=== PATIENT | female | born 1965 | race Caucasian/White ===

== ENCOUNTER 2023-07-29 06:36 | Day surgery (SDC) | payer BC, SELFPAY ==
[2023-07-15 09:29] VITALS: BMI 27.3
[2023-07-15 09:48] LABS: % Basophils 0.9 % (0-2); % Eosinophils 3.1 % (0-6); % Immature Granulocytes 0.3 % (0-0.5); % Lymphocytes 21.5 % (20.5-51.1); % Monocytes 7.7 % (1.7-9.3); % Neutrophils 66.5 % (42.2-75.2); Absolute Eosinophils 0.1 10^3/uL (0-0.7); Absolute Lymphocytes 0.7 10^3/uL (1.2-3.4); Absolute Monocytes 0.3 10^3/uL (0.1-0.6); Absolute Neutrophils 2.2 10^3/uL (1.4-6.5); Hematocrit 32.4 % (37.0-47.0); Hemoglobin 10.6 g/dL (12.0-16.0); Mean Corp Hgb Conc. 32.7 g/dL (33.0-37.0); Mean Corpuscular Hgb 27.2 pg (27.0-31.0); Mean Corpuscular Volume 83.1 fL (81.0-99.0); Mean Platelet Volume 9.3 fL (7.4-10.4); Nucleated Red Blood Cells % 0 %; Platelet Count 315 10^3/uL (130-400); Red Cell Dist. Width 15.8 % (11.5-14.5); White Blood Cell Count 3.3 10^3/uL (4.8-10.8)
[2023-07-15 09:59] LABS: APTT 24.5 Sec (23.4-35.0); INR 0.95; PT 12.5 Sec (11.4-14.6)
[2023-07-15 10:09] LABS: Blood Urea Nitrogen 12 mg/dl (7-17); Calcium 9.3 mg/dl (8.4-10.2); Carbon Dioxide 24 mmol/L (22-30); Chloride 104 mmol/L (98-107); Estimated Creatinine Clearance 80 ml/min; Glucose 96 mg/dl (70-99); Potassium 4.4 mmol/L (3.5-5.1); Sodium 133 mmol/L (135-145); eGFR > 60.00
[2023-07-15 10:26] LABS: Beta HCG Quantitative < 2.39 mIU/ml
[2023-07-29] VITALS (13 sets, daily range): BP systolic 126–168; BP diastolic 75–91; BMI 27.3
[2023-07-29] MEDS: Pyridium 200 MG PO (08:34)
[2023-07-29] MEDS: HEPARIN 5000 UNITS SC (08:34)
[2023-07-29] MEDS: NORMOSOL-R 1000 IV (08:35)
--- NOTE | 2023-07-29 09:07 | W.SUR.PREOP ---
Pre-Operative Surgical Note
-
I have examined this patient prior to the performance of the scheduled procedure.
The patient's condition is unchanged from the time of the current History and
Physical and the patient is able to undergo the scheduled procedure.
--- NOTE | 2023-07-29 12:52 | W.IMMPOSTOP ---
Surgical Immed Post Op Note
-
Primary Surgeon: Kenya Corona DO
Biomedical Engineering Professor: MICKY Thomason
Pre-op Diagnosis: Menorrhagia, uterine fibroid, rectocele, cystocele
Post-op Diagnosis: same
Procedure Performed: RA TLH B/l salpingectomy, excision of remnant of corpus luteal cyst from right ovary.
Anesthesia Type: general ET DR. Mayers
Specimen / Cultures: uterus, cervix, bilateral fallopian tubes
Estimated Blood Loss: 5ml
Complications: none
Operative Findings: Uterus enlarged with 6 cm posterior fibroid, normal appearing fallopian tubes and ovaries.
Counts correct times 2.
Dr. Castro performed robotic laparoscopic colpopexy (uterosacral ligament fixation), Anterior and posterior colporrhaphy, perineoplasty and cystoscopy after completion of hysterectomy.
[2023-07-29] MEDS: DILAUDID 0.25 MG IV ×2 (13:31→14:49)
[2023-07-29 13:56] LABS: Hematocrit 29.9 % (37.0-47.0); Hemoglobin 9.9 g/dL (12.0-16.0)
[2023-07-29 14:32] LABS: Blood Urea Nitrogen 15 mg/dl (7-17); Carbon Dioxide 21 mmol/L (22-30); Chloride 103 mmol/L (98-107); Estimated Creatinine Clearance 92 ml/min; Glucose 175 mg/dl (70-99); Potassium 3.8 mmol/L (3.5-5.1); Sodium 135 mmol/L (135-145); eGFR > 60.00
[2023-07-29] MEDS: LR 1000 IV (14:53)
--- NOTE | 2023-07-29 15:00 | PTCARENOTE ---
Pt received from the PACU via bed. Transport was w/o incident. Pt is AAOx3, HRR, Denies pain or nausea. Lungs are clear, resp. easy, Pt with 5 abd Lap sites, well approximated with surgical glue, no drainage noted. Pt with 16F laws draining clear,
yellow to orange urine (Pyridium given preop). Vss, Pt is afebrile. Pt instructed on plan of care. Both Pt and Pt's verbalized understanding of instructions. Call sibley is within reach.
[2023-07-29] MEDS: LOVENOX 40 MG SC (18:35)
[2023-07-29] MEDS: TORADOL 15 MG IV ×2 (18:35→22:58)
[2023-07-29] MEDS: COLACE 100 MG PO (18:37)
--- NOTE | 2023-07-29 20:13 | W.PN.OBG.DWH ---
Today's Communication / Plan
-
postop analgesia
plan laws out in am, void trial as per urogyn
Assessment/Plan
-
Postop check s/p RA TLH b/L salpingectomy, lap colpopexy, AP repair, perineoplasty and cystoscopy.
Doing well. REviewed operative findings.
Reviewed post expectations.
Anticipate dc laws tomorrow with voiding rial as per urogyn.
Check am labs.
Reviewed limitations and restrictions for discharge home.
Anticipate dc home tomorrow.
Subjective Data
-
Late Entry Note: pt seen approx 6 pm
Feeling well. Some nausea just started, mild.
Adequate pain control.
Objective Data
-
Laboratory Results
07/29/23 13:43
07/29/23 13:43
Vital Signs
Temp Pulse Resp BP Pulse Ox
98.1 F 70 16 138/75 99
07/29/23 16:00 07/29/23 16:00 07/29/23 16:00 07/29/23 16:00 07/29/23 16:00
VSS afeb
Abd: soft +bs nondistended inc cdi
ext: scds, on, no calf pain
[2023-07-29] MEDS: LR IV (23:04)
--- NOTE | 2023-07-30 04:35 | DOWNTIME ---
There was a [employer] Downtime on 07/29/2023 from 0100 to 07/30/2023 at 0300. Downtime documentation of patient's care, including medication administrations, has been reconciled in the electronic record per guidelines. Refer to the
patient's paper chart under the miscellaneous tab to see printed paper medication records and downtime forms.
[2023-07-30] MEDS: SYNTHROID 75 MCG PO (05:10)
[2023-07-30] MEDS: TORADOL 15 MG IV (05:11)
[2023-07-30 07:05] LABS: % Basophils 0.1 % (0-2); % Eosinophils 0.1 % (0-6); % Immature Granulocytes 0.4 % (0-0.5); % Lymphocytes 12.6 % (20.5-51.1); % Neutrophils 78.8 % (42.2-75.2); Absolute Monocytes 0.6 10^3/uL (0.1-0.6); Absolute Neutrophils 5.9 10^3/uL (1.4-6.5); Hematocrit 30.4 % (37.0-47.0); Hemoglobin 9.9 g/dL (12.0-16.0); Mean Corp Hgb Conc. 32.6 g/dL (33.0-37.0); Mean Corpuscular Hgb 26.9 pg (27.0-31.0); Mean Corpuscular Volume 82.6 fL (81.0-99.0); Mean Platelet Volume 9.6 fL (7.4-10.4); Nucleated Red Blood Cells % 0 %; Platelet Count 330 10^3/uL (130-400); Red Blood Cell Count 3.68 10^6/uL (4.20-5.40); Red Cell Dist. Width 15.4 % (11.5-14.5); White Blood Cell Count 7.5 10^3/uL (4.8-10.8)
--- NOTE | 2023-07-30 07:08 | W.DS.TRANS ---
DC Summary - [facility]
-
Discharge Instructions:
Sleep Apnea Risk Low
Discharge Diagnosis/Procedures Menorrhagia, fibroid uterus
Diet Regular
Activity No strenuous activity
Driving Restrictions No driving for 1 week
Bathing Restrictions OK to Shower
Instructions:
Stand-Alone Forms:
Changes to Home Medications: No
Discharge Medications:
DC Medications w/original date entered in [facility]
levothyroxine 75 mcg tablet (Synthroid) 75 mcg PO DAILY 10/30/22
olopatadine 0.1 % eye drops 1 drp BOTH EYES BID dry eyes 11/26/22
cholecalciferol (vitamin D3) 125 mcg (5,000 unit) tablet (Vitamin D3) 125 mcg PO DAILY 07/23/23
acetaminophen 325 mg tablet 650 mg (2 x 325 mg) PO Q4HPRN PRN mild pain #0 tabs 07/30/23
docusate sodium 100 mg capsule 100 mg PO BIDPRN PRN #0 caps 07/30/23
simethicone 80 mg chewable tablet 80 mg PO Q6HPRN PRN gas distention #0 tabs 07/30/23
Home Medication Changes
Pending Results: Yes
Additional Pending Results:
surgical pathology
Total time spent discharging patient (in min): 25
--- NOTE | 2023-07-30 07:09 | W.PN.OBG.DWH ---
Today's Communication / Plan
-
dc home
Instructions reviewed.
Assessment/Plan
-
POD#1 s/p RA TLH b/l salpingectomy, colpopexy, AP repair perineoplasty
voided after laws out
Stable for dc home
Reviewed dc instructions.
Subjective Data
-
POD#1 S/P RA TLH b/l salpingectomy, colpopexy, AP repair, perineoplasty
Feeling well. Tolerating diet
Passing flatus
No concerns. No CP, SOB
Reports some bruising bilateral calves from SCDs. She denies soreness at these sites.
Objective Data
-
Laboratory Results
07/30/23 06:33
Vital Signs
Temp Pulse Resp BP Pulse Ox
98.2 F 73 14 131/75 99
07/29/23 22:20 07/29/23 22:20 07/29/23 22:20 07/29/23 22:20 07/29/23 22:20
VSS afeb
cor: regular
Pulm: clear b/l
Abd: soft +bs nondistended nontender Inc cdi
Ext: no calf pain, bruising noted on calves b/l, NT
[2023-07-30 07:36] LABS: Blood Urea Nitrogen 10 mg/dl (7-17); Carbon Dioxide 21 mmol/L (22-30); Chloride 103 mmol/L (98-107); Estimated Creatinine Clearance 80 ml/min; Potassium 3.8 mmol/L (3.5-5.1); Sodium 136 mmol/L (135-145)
--- NOTE | 2023-07-30 07:37 | W.PN.GYN ---
Today's Communication / Plan
-
d/c home today
Physician Note
-
Assessment and plan:
57 yo woman pod 1 s/p robotic TLH, USLS, anterior and posterior colporrhaphy with perineoplasty: doing well postop day 1 and meeting postop milestones.
1. postoperative care
-regular diet
-hep lock iv
-cbc: wnl
-bmp: wnl
-uop: adequate
-tov: passed voiding trial
-dvt ppx: ambulation and scds
2. dispo
-d/c home today
Subjective:
pain well controlled, ambulating, tolerating diet
Objective:
Intake and Output
07/28/23 07/29/23 07/30/23 07/31/23
06:59 06:59 06:59 06:59
Intake Total 955 / 955
Output Total 5200 / 5200
Balance -4245 / -4245
Intake:
Oral fluids 480 / 480
IV fluids (Total) 475 / 475
normosol 100 / 100
Output:
Urine, Beck[place] 5200 / 5200
Vital Signs
Temp Pulse Resp BP Pulse Ox
98.2 F 73 14 131/75 99
07/29/23 22:20 07/29/23 22:20 07/29/23 22:20 07/29/23 22:20 07/29/23 22:20
Lab Results
07/30/23 06:33
07/30/23 06:33
Exam
Abdomen: soft, nontender, nondistended
Incisions: clean, dry, intact
: minimal spotting
LE: bruising, nontender
[2023-07-30 07:42] VITALS: BP 136/79
[2023-07-30] MEDS: LR IV (08:26)
[2023-07-30] MEDS: COLACE 100 MG PO (08:28)
--- NOTE | 2023-07-30 11:05 | CM ---
met with patient and at bedside.patient lives in mutilevel home wit h7 eloy,her bed and bath is on the second floor,she amb i and is I with her adl.her pcp is dr israel and she uses [facility] [place] for her meds,she has never had a vn or
been to ip rehab in past.poa is rod.
patient is sp robo tlh and other rn obgyn procedures.she is ambulating,tolerating diet and pain is controlled.she is stable for discharge home with no needs.
== END 2023-07-30 10:10 | disposition home or self-care (01) ==
LOC: SDS 06:36
PROVIDERS: ATTENDING PHYSICIAN Obstetrics & Gynecology; FAMILY PHYSICIAN Internal Medicine; REFERRING PHYSICIAN Obstetrics & Gynecology
DX: N81.2 Incomplete uterovaginal prolapse (principal); D25.9 Leiomyoma of uterus, unspecified; N72 Inflammatory disease of cervix uteri; N80.03 Adenomyosis of the uterus; N92.0 Excessive and frequent menstruation with regular cycle; N39.3 Stress incontinence (female) (male)
CPT/HCPCS: 57425; 57260; 58573; 58662; 88307; 36415; 80048; 80051; 82565; 84520; 84702; 85014; 85018; 85025; 85610; 85730; 86850; 86900; 86901; 87070; 93005

== ENCOUNTER 2023-11-04 07:51 | Outpatient (RCR) | payer BC, SELFPAY | END 2023-11-04 23:59 | disposition home or self-care (01) | LOC: RPT 07:51 | PROVIDERS: ATTENDING PHYSICIAN Obstetrics & Gynecology; FAMILY PHYSICIAN Internal Medicine | DX: M62.89 Other specified disorders of muscle (principal); Z73.6 Limitation of activities due to disability | CPT/HCPCS: 97161; 97530 ==

== ENCOUNTER 2023-12-09 16:07 | Outpatient (RCR) | payer BC, SELFPAY | END 2023-12-09 23:59 | disposition home or self-care (01) | LOC: RPT 16:07 | PROVIDERS: ATTENDING PHYSICIAN Obstetrics & Gynecology; FAMILY PHYSICIAN Internal Medicine | DX: M62.89 Other specified disorders of muscle (principal); Z73.6 Limitation of activities due to disability; N39.498 Other specified urinary incontinence; M62.81 Muscle weakness (generalized); Z98.890 Other specified postprocedural states | CPT/HCPCS: 97110; 97112; 97140 ==

== ENCOUNTER 2024-01-15 16:42 | Outpatient (RCR) | payer BC, SELFPAY | END 2024-01-15 23:59 | disposition home or self-care (01) | LOC: RPT 16:42 | PROVIDERS: ATTENDING PHYSICIAN Obstetrics & Gynecology; FAMILY PHYSICIAN Internal Medicine | DX: M62.89 Other specified disorders of muscle (principal); Z73.6 Limitation of activities due to disability | CPT/HCPCS: 97110; 97112 ==

== ENCOUNTER → 2024-03-02 11:23 | Outpatient (REF) | payer BC, SELFPAY ==
[2024-03-02 12:36] LABS: % Basophils 0.2 % (0-2); % Eosinophils 1.5 % (0-6); % Immature Granulocytes 0.3 % (0-0.5); % Lymphocytes 10.2 % (20.5-51.1); % Monocytes 6.8 % (1.7-9.3); Absolute Eosinophils 0.1 10^3/uL (0-0.7); Absolute Lymphocytes 0.6 10^3/uL (1.2-3.4); Absolute Monocytes 0.4 10^3/uL (0.1-0.6); Absolute Neutrophils 4.9 10^3/uL (1.4-6.5); Hematocrit 36.7 % (37.0-47.0); Hemoglobin 12.4 g/dL (12.0-16.0); Mean Corp Hgb Conc. 33.8 g/dL (33.0-37.0); Mean Corpuscular Volume 85.7 fL (81.0-99.0); Mean Platelet Volume 9.8 fL (7.4-10.4); Nucleated Red Blood Cells % 0 %; Platelet Count 219 10^3/uL (130-400); Red Blood Cell Count 4.28 10^6/uL (4.20-5.40); Red Cell Dist. Width 14.4 % (11.5-14.5)
[2024-03-02 13:47] LABS: ALT (SGPT) 22 U/L (0-35); AST (SGOT) 22 U/L (14-36); Albumin 4.1 g/dl (3.5-5.0); Alkaline Phosphatase 72 U/L (38-126); Blood Urea Nitrogen 17 mg/dl (7-17); Calcium 9.1 mg/dl (8.4-10.2); Carbon Dioxide 28 mmol/L (22-30); Chloride 100 mmol/L (98-107); Glucose 128 mg/dl (70-99); Potassium 3.9 mmol/L (3.5-5.1); Sodium 138 mmol/L (135-145); Total Bilirubin 0.6 mg/dl (0.2-1.3); Total Protein 6.9 g/dl (6.3-8.2); eGFR > 60.00
== END ==
LOC: REG 11:23
PROVIDERS: ATTENDING PHYSICIAN Hospitalist
DX: R50.9 Fever, unspecified (principal)
CPT/HCPCS: 36415; 71046; 80053; 85025

== ENCOUNTER → 2024-06-01 16:40 | Outpatient (REF) | payer BC, SELFPAY ==
[2024-06-01 17:42] LABS: Urine Albumin Negative (Neg - Trace); Urine Bilirubin Negative (Negative); Urine Character Clear (Clear); Urine Color Yellow; Urine Glucose Negative (Negative); Urine Ketone Negative (Negative); Urine Leukocyte 1+ (Negative); Urine Nitrite Negative (Negative); Urine Occult Blood 3+ (Negative); Urine Specific Gravity 1.015 (<1.030); Urine Urobilinogen Negative (Neg - 1+); Urine pH 6.5 (5.0-9.0)
[2024-06-01 17:57] LABS: Urine Bacteria Many (Negative); Urine Squamous Cell 26-30 /LPF (Few); Urine White Cell 30-40 /HPF (0-5)
== END ==
LOC: REG 16:40
PROVIDERS: ATTENDING PHYSICIAN Obstetrics & Gynecology; FAMILY PHYSICIAN Internal Medicine
DX: N39.0 Urinary tract infection, site not specified (principal)
CPT/HCPCS: 81003; 81015; 87077; 87086; 87186

== ENCOUNTER → 2024-06-21 16:00 | Outpatient (REF) | payer BC, SELFPAY | LOC: RAD 16:00 | PROVIDERS: ATTENDING PHYSICIAN Physician Assistant; FAMILY PHYSICIAN Internal Medicine | DX: R10.9 Unspecified abdominal pain (principal) | CPT/HCPCS: 76770 ==

== ENCOUNTER 2024-07-15 06:26 | Day surgery (SDC) | payer BC, SELFPAY | END 2024-07-15 10:38 | disposition home or self-care (01) | LOC: GI 06:26 | PROVIDERS: ATTENDING PHYSICIAN Internal Medicine; FAMILY PHYSICIAN Internal Medicine | DX: Z12.11 Encounter for screening for malignant neoplasm of colon (principal); K57.30 Diverticulosis of large intestine without perforation or abscess without bleeding; K55.20 Angiodysplasia of colon without hemorrhage; K64.8 Other hemorrhoids; D12.3 Benign neoplasm of transverse colon; K62.1 Rectal polyp; K51.40 Inflammatory polyps of colon without complications; Z83.719 Family history of colon polyps, unspecified | CPT/HCPCS: 45380; 88305 ==

== ENCOUNTER 2024-11-27 00:54 | Inpatient (IN) | payer BC, SELFPAY ==
[2024-11-26 15:47] VITALS: BP 178/97
[2024-11-26 16:15] LABS: Hematocrit 37.3 % (37.0-47.0); Hemoglobin 13.2 g/dL (12.0-16.0); Mean Corp Hgb Conc. 35.4 g/dL (33.0-37.0); Mean Corpuscular Volume 92.1 fL (81.0-99.0); Nucleated Red Blood Cells % 0 %; Platelet Count 246 10^3/uL (130-400); Red Cell Dist. Width 12.2 % (11.5-14.5)
[2024-11-26 16:30] LABS: ALT (SGPT) 32 U/L (0-35); AST (SGOT) 23 U/L (14-36); Albumin 4.7 g/dl (3.5-5.0); Alkaline Phosphatase 77 U/L (38-126); Blood Urea Nitrogen 15 mg/dl (7-17); Calcium 9.8 mg/dl (8.4-10.2); Carbon Dioxide 26 mmol/L (22-30); Chloride 103 mmol/L (98-107); Glucose 92 mg/dl (70-99); Potassium 4.3 mmol/L (3.5-5.1); Sodium 138 mmol/L (135-145); Total Protein 7.7 g/dl (6.3-8.2); eGFR > 60.00
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
[2024-11-26 19:22] VITALS: BMI 26.2
[2024-11-26 19:30] VITALS: BP 186/94
[2024-11-26 19:34] LABS: Lipase 61 U/L (23-300)
[2024-11-26] MEDS: MOTRIN 600 MG PO (19:39)
[2024-11-26 19:54] LABS: Urine Character Clear (Clear)
[2024-11-26 19:58] LABS: COVID-19 Antigen Negative (Negative)
[2024-11-26 20:16] LABS: Urine Squamous Cell >30 /LPF (Few); Urine White Cell 0-2 /HPF (0-5)
[2024-11-26 21:58] VITALS: BP 155/81
[2024-11-26] MEDS: ZOSYN 50 IV (23:09)
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
[2024-11-26] MEDS: VANCOCIN 540 MG IV (23:57)
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
[2024-11-27 01:51] VITALS: BP 155/91; BMI 28.0
[2024-11-27] MEDS: NSS 1000 IV ×3 (02:30→21:45)
[2024-11-27] MEDS: SYNTHROID 75 MCG PO (05:57)
[2024-11-27] MEDS: ZOSYN 50 IV ×4 (05:57→23:03)
[2024-11-27 07:55] VITALS: BP 136/79
[2024-11-27] MEDS: VITAMIN D3 (cholecalciferol) 125 MCG PO (08:22)
[2024-11-27] MEDS: TYLENOL 650 MG PO ×2 (08:25→23:08)
[2024-11-27 09:40] LABS: Hematocrit 36.0 % (37.0-47.0); Hemoglobin 12.2 g/dL (12.0-16.0); Mean Corp Hgb Conc. 33.9 g/dL (33.0-37.0); Mean Corpuscular Volume 95.0 fL (81.0-99.0); Platelet Count 220 10^3/uL (130-400); Red Cell Dist. Width 12.2 % (11.5-14.5)
[2024-11-27 09:52] LABS: Blood Urea Nitrogen 10 mg/dl (7-17); Calcium 8.6 mg/dl (8.4-10.2); Carbon Dioxide 27 mmol/L (22-30); Chloride 105 mmol/L (98-107); Estimated Creatinine Clearance 100 ml/min; Glucose 99 mg/dl (70-99); Potassium 3.8 mmol/L (3.5-5.1); Sodium 138 mmol/L (135-145); eGFR > 60.00
--- NOTE | 2024-11-27 11:55 | W.PN.HOSP.TC ---
Today's Communication/Plan
-
IV antibiotics
monitor wound
advance diet to fulls
Assessment / Plan
Assessment / Plan
General: Comfortable and Conversant
HEENT: Anicteric and Moist mucous membranes
Respiratory: Clear and Non Labored Respirations
Cardiac: S1/S2 and Regular Rhythm
GI: Soft, Tender (Mild tenderness to palpation bilateral lower quadrants) and Distended
Rectal: Deferred by Provider
Musculoskeletal: No Clubbing, No Cyanosis and No Edema
Skin: Warm, Dry and Other (R lateral leg wound open with blood expressed-no purulent drainage noted) mild erythema noted around the wound site.
Neuro: Awake, Alert, Oriented and Nonfocal/grossly intact)
Psych: Calm
#Acute sigmoid diverticulitis without evidence of pericolonic abscess or perforation.
#Hx of diverticulosis
Advance diet to fulls
IVF for now
IV zosyn for now. Switch to po abx on discharge
Blood culture in lab
Recommend OP GI f/u upon discharge
#RLE Cellulitis with Infected Hematoma s/p I&D in ED
Continue Zosyn
US non vascular showed-There is a 4.1 x 1.2 x 1.1 cm thick-walled fluid collection with mild peripheral vascularity and surrounding edema within the superficial soft tissues of the distal lateral right lower extremity suspicious for developing
abscess or infected hematoma.
US Doppler-negative for DVT
Monitor wound closely. May need wound care evaluation either inpatient or outpatient.
#Hypothyroidism
Continue levothyroxine
DVT proph: SCDs
Code Status: Full Code
Anticipated Discharge: > 48 hours
Subjective/Interval History
-
Date of Service: November 27, 2024
states of lower abdomen cramps
Objective Data
-
Labs:
Laboratory Results
11/27/24
07:26
WBC 6.9
Hgb 12.2
Hct 36.0 L
Plt Count 220
Sodium 138
Potassium 3.8
Chloride 105
Carbon Dioxide 27
BUN 10
Creatinine 0.7
Glucose 99
Calcium 8.6
Vital Signs:
Vital Signs
Temp Pulse Resp BP Pulse Ox
99.5 F 88 16 136/79 97
11/27/24 07:55 11/27/24 07:55 11/27/24 07:55 11/27/24 07:55 11/27/24 07:55
I&O
11/26/24 11/27/24 11/28/24
06:59 06:59 06:59
Intake Total 0 / 0
Balance 0 / 0
--- NOTE | 2024-11-27 14:55 | CM ---
Initial assessment completed with patient with in room. Patient lives with her in a 2 story home plus basement with B/B on 2nd and full bath on 1st, 5 steps to enter. 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 There are crutches in the home. No in-home services. Does have a HC-POA. No VA benefits. No psychiatric hospitalizations. PCP is Dr. Claudia Appiah. Pharmacy is [facility] in [place]. Discharge POC: Home with no needs.
[2024-11-27 15:55] VITALS: BP 149/86
[2024-11-27 23:19] VITALS: BP 144/71
[2024-11-28] MEDS: ZOSYN 50 IV ×3 (04:56→17:08)
[2024-11-28] MEDS: SYNTHROID 75 MCG PO (04:56)
[2024-11-28 07:55] VITALS: BP 147/85
[2024-11-28] MEDS: VITAMIN D3 (cholecalciferol) 125 MCG PO (08:11)
[2024-11-28] MEDS: NSS 1000 IV ×2 (08:15→21:40)
[2024-11-28 08:32] LABS: Hematocrit 32.9 % (37.0-47.0); Hemoglobin 11.4 g/dL (12.0-16.0); Mean Corp Hgb Conc. 34.7 g/dL (33.0-37.0); Mean Corpuscular Volume 93.5 fL (81.0-99.0); Nucleated Red Blood Cells % 0 %; Platelet Count 210 10^3/uL (130-400); Red Cell Dist. Width 12.2 % (11.5-14.5)
[2024-11-28 08:59] LABS: Blood Urea Nitrogen 7 mg/dl (7-17); Calcium 8.2 mg/dl (8.4-10.2); Carbon Dioxide 27 mmol/L (22-30); Chloride 109 mmol/L (98-107); Estimated Creatinine Clearance 117 ml/min; Glucose 89 mg/dl (70-99); Potassium 4.0 mmol/L (3.5-5.1); Sodium 139 mmol/L (135-145); eGFR > 60.00
--- NOTE | 2024-11-28 11:25 | W.PN.HOSP.TC ---
Today's Communication/Plan
-
Continue with IV antibiotics
Continue with IV fluids
Monitor temperature and fever curve
Assessment / Plan
Assessment / Plan
General: Comfortable and Conversant
HEENT: Anicteric and Moist mucous membranes
Respiratory: Clear and Non Labored Respirations
Cardiac: S1/S2 and Regular Rhythm
GI: Soft, Tender (Mild tenderness to palpation bilateral lower quadrants) and Distended
Rectal: Deferred by Provider
Musculoskeletal: No Clubbing, No Cyanosis and No Edema
Skin: Warm, Dry and Other (R lateral leg wound open -no purulent drainage noted. No expressed blood noted on deep palpation) mild erythema noted around the wound site.
Neuro: Awake, Alert, Oriented and Nonfocal/grossly intact)
Psych: Calm
#Acute sigmoid diverticulitis without evidence of pericolonic abscess or perforation.
#Hx of diverticulosis
Continue with fulls for now.
IVF for now
IV zosyn for now. Switch to po abx on discharge
Blood culture remains negative so far
Overnight fevers noted to 101.6F. If persistently spiking fever may need repeat CAT scan to rule out abscess.
#RLE Cellulitis with Infected Hematoma s/p I&D in ED
Continue Zosyn
US non vascular showed-There is a 4.1 x 1.2 x 1.1 cm thick-walled fluid collection with mild peripheral vascularity and surrounding edema within the superficial soft tissues of the distal lateral right lower extremity suspicious for developing
abscess or infected hematoma.
US Doppler-negative for DVT
Wound care evaluation in the morning..
MRSA negative
#Hypothyroidism
Continue levothyroxine
DVT proph: Foot pumps in the setting of hematoma right leg
Code Status: Full Code
Anticipated Discharge: > 48 hours
Subjective/Interval History
-
Date of Service: November 28, 2024
Overnight spiked fever. Patient says she was symptomatic.
States of lower abdominal cramping which has mildly improved
Having loose stools
Objective Data
-
Labs:
Laboratory Results
11/28/24
06:42
WBC 5.2
Hgb 11.4 L
Hct 32.9 L
Plt Count 210
Sodium 139
Potassium 4.0
Chloride 109 H
Carbon Dioxide 27
BUN 7
Creatinine 0.6
Glucose 89
Calcium 8.2 L
Vital Signs:
Vital Signs
Temp Pulse Resp BP Pulse Ox
97.6 F 66 16 147/85 98
11/28/24 07:55 11/28/24 07:55 11/28/24 07:55 11/28/24 07:55 11/28/24 07:55
I&O
11/27/24 11/28/24 11/29/24
06:59 06:59 06:59
Intake Total 0 / 0 3840 / 3840
Balance 0 / 0 3840 / 3840
[2024-11-28 15:55] VITALS: BP 151/87
[2024-11-28 23:11] VITALS: BP 157/87
[2024-11-29] MEDS: ZOSYN 50 IV ×2 (00:07→05:31)
[2024-11-29] MEDS: NSS IV (03:50)
[2024-11-29] MEDS: SYNTHROID 75 MCG PO (05:31)
[2024-11-29 06:58] LABS: Hematocrit 34.4 % (37.0-47.0); Hemoglobin 11.7 g/dL (12.0-16.0); Mean Corp Hgb Conc. 34.0 g/dL (33.0-37.0); Mean Corpuscular Volume 92.5 fL (81.0-99.0); Nucleated Red Blood Cells % 0 %; Platelet Count 232 10^3/uL (130-400); Red Cell Dist. Width 11.8 % (11.5-14.5)
[2024-11-29 07:24] LABS: Blood Urea Nitrogen 4 mg/dl (7-17); Calcium 8.6 mg/dl (8.4-10.2); Carbon Dioxide 27 mmol/L (22-30); Chloride 107 mmol/L (98-107); Estimated Creatinine Clearance 100 ml/min; Glucose 94 mg/dl (70-99); Potassium 3.7 mmol/L (3.5-5.1); Sodium 140 mmol/L (135-145); eGFR > 60.00
[2024-11-29] MEDS: VITAMIN D3 (cholecalciferol) 125 MCG PO (08:26)
[2024-11-29 08:28] VITALS: BP 153/90
[2024-11-29] MEDS: NSS 1000 IV (08:31)
--- NOTE | 2024-11-29 09:09 | W.PN.HOSP.TC ---
Addendum entered and electronically signed by Maria Eugenia Amezquita MD 11/29/24 12:42:
# Sepsis-POA
Original Note:
Today's Communication/Plan
-
see A/P
Assessment / Plan
Assessment / Plan
A/P:
# Acute sigmoid diverticulitis without evidence of pericolonic abscess or perforation.
# Hx of diverticulosis
IV zosyn -> Levaquin/Flagyl 7 more days on discharge
Diet advanced to low residue and pt tolerated well
Monitor off IVF
Blood culture negative
Monitor temp curve, noted fever on 11/27
# RLE Cellulitis with Infected Hematoma s/p I&D in ED
US non vascular showed 4.1 x 1.2 x 1.1 cm fluid collection of right lower extremity suspicious for developing abscess or infected hematoma.
US Doppler-negative for DVT.
Wound care evaluation.
MRSA negative
Abx as above
# Hypothyroidism
Continue levothyroxine
DVT proph: Foot pumps in the setting of hematoma right leg
Code Status: Full Code
Anticipated Discharge: Today
Subjective/Interval History
-
Date of Service: November 29, 2024
Objective Data
-
Labs:
Laboratory Results
11/29/24
06:30
WBC 3.9 L
Hgb 11.7 L
Hct 34.4 L
Plt Count 232
Sodium 140
Potassium 3.7
Chloride 107
Carbon Dioxide 27
BUN 4 L
Creatinine 0.7
Glucose 94
Calcium 8.6
Vital Signs:
Vital Signs
Temp Pulse Resp BP Pulse Ox
37.0 C 76 18 153/90 97
11/29/24 08:28 11/29/24 08:28 11/29/24 08:28 11/29/24 08:28 11/29/24 08:28
I&O
11/28/24 11/29/24 11/30/24
06:59 06:59 06:59
Intake Total 3840 / 3840 3640 / 3640
Balance 3840 / 3840 3640 / 3640
Review of Systems
-
History Source: Patient
All other systems: Reviewed and negative
Abdomen/GI: Denies Abdominal Pain
Physical Exam
-
General: Well Developed, Well Nourished, No Apparent Distress, Comfortable and Conversant; Negative Respiratory Distress
HEENT: Normocephalic, Atraumatic, Nose Appears Normal and Ears Appear Normal; Negative Oxygen
Respiratory: Clear to Auscultation and Non Labored Respirations; Negative Accessory Resp Muscle Use
Cardiac: Regular Rhythm and S1/S2
GI: Soft, Nontender, Nondistended and Normal Bowel Sounds
Skin: Warm, Dry and Other (clean wound from I/D of RLE hematoma )
Neuro: Awake, Alert, Oriented and AO x 3
Psych: Calm and Intact Judgement/Insight
Data Reviewed
-
Ultrasound: Report Reviewed by me
Labs: Labs Reviewed by me
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
--- NOTE | 2024-11-29 12:11 | PTOTSP ---
Chart reviewed, spoke with nurse. Therapist spoke with the patient, who denied the need for PT evaluation as she has remained independent with mobility with no changes in her level of function. PT will sign off at this time, discussed with RN.
--- NOTE | 2024-11-29 12:32 | PN.CDI ---
CDI
- -
CDI:
Physician Documentation Request
Admit Date: 11/27/24 00:54
Dear Doctor Alirio,
Please review the following and provide your response in the progress notes.
Clinical Indicators:
Pt admitted with Acute Sigmoid Diverticulitis/RLE Cellulitis /infected hematoma
Documented per ED, ' Today she noted fever/chills. Took advil and then went to for eval. She was told at that her temp was 103 and was advised to come to ED for possible cellulitis to right lower leg....Temp max 99. Episode of rigors on
arrival to ED. ..'
On admission HR 113,RR 26 , Tmax 101.6 ( 11/27 @ 5448)
Antibiotics IV Zosyn with Levaquin/Flagyl 7 more days on discharge
Please clarify which of the following most accurately describes the status of the patient's infection:
Sepsis-POA
- Systemic manifestations of infection, with 2 or more SIRS criteria which include:
- Fever >100.9 degrees F or hypothermia < 96.8 degrees F
- Leukocytosis - WBC > 12,000 or leukopenia - WBC < 4,000 or > 10% bands
- Tachycardia > 90 beats per minute
- Tachypnea - RR > 20 breaths per minute or PaCO2 , 32mmHg
Source: Merck Manual 2013
RLE cellulitis/ Acute Sigmoid Diverticulitis only , Without Systemic Illness
Other ( please specify)
Use of terms such as suspected, likely, concern for, or probable (associated with a specific diagnosis that is being evaluated, monitored, or treated as if it exists) are acceptable and can be coded in the inpatient setting, when documented at the
time of discharge.
Thank you,
Josefina Harris RN
CDI Specialist
[facility]
Please use your independent medical judgment in providing your response.
--- NOTE | 2024-11-29 12:49 | CM ---
CM reviewed chart and noted dc order
Discussion with WOC- no recommendations for CM to set up
Bedside meeting with pt and spouse and CM confirmed pharmacy on chart
No dc needs noted, pt indep in room per PT note
Discharge Disposition- home, no needs, spouse transport
--- NOTE | 2024-11-29 13:10 | W.DCSUMMARY ---
Discharge Summary
Discharge Data
Date of Admission: 11/27/24
Date of Discharge: 11/29/24
Total time spent discharging patient (in min): 40
-
Pending Results: No
Hospital Course
Principal Diagnosis:
Acute sigmoid diverticulitis without abscess or perforation.
RLE cellulitis with infected hematoma s/p I&D in ED.
Chronic Diagnoses:�
Hypothyroidism on levothyroxine
history of diverticulosis
Consultations:�
Wound care
Procedures:�
RLE hematoma s/p I&D in ED.
Clinical course:�
This is a 59-year-old female with past medical history as stated above, who presented with abdominal pain and fever. She also recently accidentally scraped her right leg.
Problem 1:
Acute sigmoid diverticulitis without evidence of pericolonic abscess or perforation.
The patient received IV antibiotics Zosyn while in the hospital, and was discharged with oral Levaquin/Flagyl for 7 more days.
She tolerated low residue diet well prior to discharge.
Problem 2:
RLE cellulitis with infected hematoma s/p I&D in ED.
Her US non vascular showed 4.1 x 1.2 x 1.1 cm fluid collection of right lower extremity suspicious for developing abscess or infected hematoma.
Her US Doppler was negative for DVT.
She can continue with antibiotic as stated above.
As for the rest of her medical problems, they were stable during her hospital stay.
Discharge Plan
-
Patient Disposition: Home (Routine Discharge)
Discharge Diagnosis/Procedures: Acute sigmoid diverticulitis;
Right leg hematoma s/p I&D
Condition: Fair
Diet: As tolerated
Activity: As tolerated
Driving Restrictions: As prior to admission
Blood Work: CBC, BMP with your PCP in 1 week
Wound Care: Wound Care Instructions
R leg wound-clean with saline or soap and water, Santyl ointment, cover with non stick dressing (i.e. silicone border foam or Vaseline gauze, gauze and Jerry/stockinet), change daily and as needed for drainage.
Follow up at wound care center call for an appointment.
Referrals:
Claudia Appiah MD [Family Provider, Internal Medicine] - in less than 1 week
Additional Discharge Medication Instructions: Continue antibiotics Levaquin and Flagyl for 7 more days.
You can take probiotic during the time you are on antibiotics.
Prescriptions:
New
acetaminophen 325 mg Tablet
650 mg PO Q4HPRN PRN (Reason: mild pain/ fever>100.5F) Qty: 10 0RF
levofloxacin 750 mg tablet
750 mg PO DAILY 7 Days Qty: 7 0RF
metronidazole 500 mg tablet
500 mg PO Q8H 7 Days Qty: 21 0RF
Probiotic 15 billion cell capsule, sprinkle
1 cap PO DAILY Qty: 20 0RF
(DME) CBC with diff
See Rx Instructions .Route .MEDSUPPLY Qty: 1 0RF
Rx Instructions:
12/01 to 12/09/2024, result to PCP
# Diverticulitis
(DME) BMP
See Rx Instructions .Route .MEDSUPPLY Qty: 1 0RF
Rx Instructions:
12/01 to 12/09/2024, result to PCP
# Diverticulitis
Santyl 250 unit/gram Ointment
1 applic topical DAILY Qty: 30 2RF
Rx Instructions:
Apply thick layer to R leg wound daily, cover with non-stick dressing daily
Continued
levothyroxine [Synthroid] 75 mcg Tablet
75 mcg PO DAILY
cholecalciferol (vitamin D3) [Vitamin D3] 125 mcg (5,000 unit) Tablet
125 mcg PO DAILY
aspirin 81 mg Tablet
81 mg PO DAILY
Discharge Orders:
Discharge Patient (As Directed); Ordered 11/29/24
Ordered By: Maria Eugenia Amezquita
Discharge Date and Time
Discharge Date/Time: 11/29/24 13:15
Print Language: LITHUANIAN
== END 2024-11-29 13:15 | disposition home or self-care (01) | DRG 872 ==
LOC: 4 EAST ACU 00:54
PROVIDERS: Emergency Medicine; Hospitalist; Nurse Practitioner; Physician Assistant Medical; ADMITTING PHYSICIAN Internal Medicine; ATTENDING PHYSICIAN Internal Medicine; EMERGENCY PHYSICIAN Emergency Medicine; FAMILY PHYSICIAN Internal Medicine
PROC: 0J9N0ZZ Drainage of Right Lower Leg Subcutaneous Tissue and Fascia, Open Approach (ICD-10-PCS; 2024-11-26)
DX: A41.9 Sepsis, unspecified organism (principal); L03.115 Cellulitis of right lower limb; K57.32 Diverticulitis of large intestine without perforation or abscess without bleeding; L02.415 Cutaneous abscess of right lower limb; S80.11XA Contusion of right lower leg, initial encounter; E03.9 Hypothyroidism, unspecified; V49.9XXA Car occupant (driver) (passenger) injured in unspecified traffic accident, initial encounter; Y93.89 Activity, other specified; Y92.39 Other specified sports and athletic area as the place of occurrence of the external cause; Z88.2 Allergy status to sulfonamides; Z79.890 Hormone replacement therapy; Z79.82 Long term (current) use of aspirin; Z90.710 Acquired absence of both cervix and uterus; Z11.52 Encounter for screening for COVID-19
CPT/HCPCS: 10060; 74177; 76882; 80048; 80053; 81003; 81015; 83605; 83690; 85025; 85027; 87040; 87070; 87147; 87205; 87502; 87811; 93971; 96365; 96366; 96367; 99285; Q9967

== ENCOUNTER → 2024-12-17 08:04 | Outpatient (REF) | payer BC, SELFPAY | LOC: WOUND 08:04 | PROVIDERS: ATTENDING PHYSICIAN Surgery; FAMILY PHYSICIAN Internal Medicine | DX: L97.212 Non-pressure chronic ulcer of right calf with fat layer exposed (principal) | CPT/HCPCS: 11042; 99203 ==

== ENCOUNTER → 2024-12-24 08:46 | Outpatient (REF) | payer BC, SELFPAY | LOC: WOUND 08:46 | PROVIDERS: ATTENDING PHYSICIAN Surgery; FAMILY PHYSICIAN Internal Medicine | DX: L97.212 Non-pressure chronic ulcer of right calf with fat layer exposed (principal) | CPT/HCPCS: 11042 ==

== ENCOUNTER → 2024-12-30 08:00 | Outpatient (REF) | payer BC, SELFPAY | LOC: WOUND 08:00 | PROVIDERS: ATTENDING PHYSICIAN Surgery; FAMILY PHYSICIAN Internal Medicine | DX: L97.212 Non-pressure chronic ulcer of right calf with fat layer exposed (principal) | CPT/HCPCS: 11042 ==

== ENCOUNTER → 2025-01-13 14:13 | Outpatient (REF) | payer BC, SELFPAY | LOC: WOUND 14:13 | PROVIDERS: ATTENDING PHYSICIAN Surgery; FAMILY PHYSICIAN Internal Medicine | DX: L97.212 Non-pressure chronic ulcer of right calf with fat layer exposed (principal) | CPT/HCPCS: 99212 ==